=== PATIENT | female | born 1955 | race Caucasian/White ===

== ENCOUNTER 2016-11-09 15:14 | Emergency (ER) ==
--- NOTE | 2016-11-09 16:28 | PROVIDER DOCUMENTATION ---
HPI-Abdominal Pain/GI Problem <Austin Olsen - Last Filed: 11/09/16 16:40> - General Source: patient - History of Present Illness-ABD Abdominal Pain Onset Location: reports: periumbilical Onset/Duration: reports: 2 days ago Timing: reports: still present Activities at Onset: reports: eating Associated Symptoms: reports: diarrhea. denies: fever/chills <Marlene Calabrese - Last Filed: 11/09/16 16:55> <Stanislaw Leon - Last Filed: 11/09/16 17:43> - General Chief Complaint: Abdominal Pain Stated Complaint: ABD PAIN Time Seen by Provider: 11/09/16 16:00 Allergies/Adverse Reactions: Patient Allergies Allergy/AdvReac Type Severity Reaction Status Date / Time No Known Allergies Allergy Verified 07/07/15 17:39 Home Medications: Esomeprazole [Nexium] 40 mg PO DAILY 07/07/15 - History of Present Illness-ABD Nature of Presenting Problems: Pt presents to ER with complaint of abd pain for the last couple months but much worse the past 2 days. Pt states that she cannot eat anything without having diarrhea. Has had gallbladder removed. (Marlene Calabrese) Review of Systems - Adult - REVIEW OF SYSTEMS - ADULT Constitutional: denies: chills, fever Eyes: reports: no symptoms reported Ears, Nose, Mouth & Throat: reports: no symptoms reported Cardiovascular: reports: no symptoms reported Respiratory: reports: no symptoms reported Gastrointestinal: reports: abdominal pain, diarrhea Genitourinary: reports: no symptoms reported Musculoskeletal: reports: no symptoms reported Integumentary: reports: no symptoms reported Neurological: reports: no symptoms reported Psychiatric: reports: no symptoms reported Endocrine: reports: no symptoms reported Hematologic/Lymphatic: reports: no symptoms reported Allergic/Immunologic: reports: no symptoms reported All Other Systems: Reviewed and Negative <Marlene Calabrese - Last Filed: 11/09/16 16:55> Past History - Adult - PAST MEDICAL HISTORY-ADULT Review of Records: reports: Nursing Assessment Review, Medications Reviewed Gastrointestinal: reports: GERD - PRIOR SURGERIES/PROCEDURES Surgical/Procedure History: reports: cholecystectomy - IMMUNIZATION STATUS Childhood Immunizations: See Nurse Assessment Flu Vaccine: See Nurse Assessment <Marlene Calabrese - Last Filed: 11/09/16 16:55> Physical Exam-General - GASTROINTESTINAL (ABDOMEN) Abdominal Exam: normal bowel sounds, soft, no organomegaly, no pulsatile mass, tenderness (generalized diffuse) <Austin Olsen - Last Filed: 11/09/16 16:40> - CONSTITUTIONAL General Appearance: alert, no apparent distress - EYES Eyes: PERRL/EOMI, pink conjunctivae - HEAD, EARS, NOSE, MOUTH & THROAT HENMT: normocephalic/atraumatic, normal ENT inspection - NECK Neck: non-tender, supple - RESPIRATORY Respiratory: no respiratory distress, no accessory muscle use - CARDIOVASCULAR Cardiovascular: normal peripheral pulses, regular rate, rhythm - MUSCULOSKELETAL Back Exam: no CVA tenderness, no vertebral tenderness Extremity: normal gait, normal inspection - SKIN Integumentary: normal color, warm/dry - NEUROLOGIC Neurologic: grossly normal, no motor/sensory deficits - PSYCHIATRIC Psych/Mental Status: normal mood/affect, normal thought content, normal thought process, oriented x 3 <Marlene Calabrese - Last Filed: 11/09/16 16:55> Progress <Austin Olsen - Last Filed: 11/09/16 16:40> <Marlene Calabrese - Last Filed: 11/09/16 16:55> <Stanislaw Leon - Last Filed: 11/09/16 17:43> - PLAN OF CARE/RESULTS Progress/Plan/Lab Results: Vital Signs - 24 hr 11/09/16 15:25 Temperature 98 F Pulse Rate 75 Respiratory 18 Rate Blood Pressure 172/85 O2 Sat by Pulse 97 Oximetry Orders Category Date Time Status CBC WITH DIFF [HEME] Stat Lab 11/09/16 16:46 Completed COMPREHENSIVE METABOLIC PANEL [CHEM] Stat Lab 11/09/16 16:[address] W/POSS RFLX CULT [URINALYSIS] Stat Lab 11/09/16 16:30 Completed URINE CULTURE [RM] Routine Lab 11/09/16 17:14 Ordered Laboratory Tests 11/09/16 11/09/16 11/09/16 16:00 16:30 16:46 WBC RBC Hgb Hct MCV MCH MCHC RDW Std Deviation Plt Count MPV Immature Gran % (Auto) Neut % (Auto) Lymph % (Auto) [place] % (Auto) Eos % (Auto) Baso % (Auto) Immature Gran # (Auto) Neut # (Auto) Lymph # (Auto) [place] # (Auto) Eos # (Auto) Baso # (Auto) Sodium 139 Potassium 3.9 Chloride 102 Carbon Dioxide 29 Anion Gap 8 BUN 6 L Creatinine 0.7 Estimated GFR/1.73 m2 > 60 BUN/Creatinine Ratio 9 Glucose 101 Calculated Osmolality 275 Calcium 9.6 Total Bilirubin 0.50 AST 14 ALT 12 Alkaline Phosphatase 91 Total Protein 7.4 Albumin 4.4 Globulin 3.0 Albumin/Globulin Ratio 1.0 Urine Source Cancelled CLEAN CATCH Urine Color Cancelled YELLOW Urine Clarity SLIGHTLY CLOUDY A Urine Turbidity Cancelled Urine pH Cancelled 5.0 Ur Specific [place] Cancelled 1.020 Urine Protein Cancelled TRACE A Ur Glucose (Stick) Cancelled Urine Ketones NEGATIVE Ur Ketones (Stick) Cancelled Urine Blood Cancelled TRACE Urine Nitrite Cancelled NEGATIVE Urine Bilirubin Cancelled NEGATIVE Urine Urobilinogen NORMAL Urobilinogen Dipstick Cancelled Urine Leukocytes Cancelled Urine WBC (Auto) Cancelled Urine RBC (Auto) Cancelled U Epithel Cells (Auto) Cancelled Urine Bacteria (Auto) Cancelled Urine Microscopic RBC <10 Urine WBC 2+ A Urine Microscopic WBC 10-20 A Ur Epithelial Cells <10 Urine Crystals NONE SEEN Urine Bacteria 1+ Urine Casts NONE SEEN Urine Yeast NONE SEEN Urine Glucose NEGATIVE 11/09/16 16:46 WBC 7.07 RBC 4.50 Hgb 13.2 Hct 38.9 MCV 86.4 MCH 29.3 MCHC 33.9 RDW Std Deviation 12.4 Plt Count 325 MPV 10.5 H Immature Gran % (Auto) 0.1 Neut % (Auto) 68.7 Lymph % (Auto) 25.3 [place] % (Auto) 5.5 Eos % (Auto) 0.1 Baso % (Auto) 0.3 Immature Gran # (Auto) 0.01 Neut # (Auto) 4.85 Lymph # (Auto) 1.79 [place] # (Auto) 0.39 Eos # (Auto) 0.01 Baso # (Auto) 0.02 Sodium Potassium Chloride Carbon Dioxide Anion Gap BUN Creatinine Estimated GFR/1.73 m2 BUN/Creatinine Ratio Glucose Calculated Osmolality Calcium Total Bilirubin AST ALT Alkaline Phosphatase Total Protein Albumin Globulin Albumin/Globulin Ratio Urine Source Urine Color Urine Clarity Urine Turbidity Urine pH Ur Specific [place] Urine Protein Ur Glucose (Stick) Urine Ketones Ur Ketones (Stick) Urine Blood Urine Nitrite Urine Bilirubin Urine Urobilinogen Urobilinogen Dipstick Urine Leukocytes Urine WBC (Auto) Urine RBC (Auto) U Epithel Cells (Auto) Urine Bacteria (Auto) Urine Microscopic RBC Urine WBC Urine Microscopic WBC Ur Epithelial Cells Urine Crystals Urine Bacteria Urine Casts Urine Yeast Urine Glucose (Stanislaw Leon) Departure <Austin Olsen - Last Filed: 11/09/16 16:40> <Marlene Calabrese - Last Filed: 11/09/16 16:55> - Departure Time of Disposition Order: 17:43 Certified Medical Emergency: Emergent <Stanislaw Leon - Last Filed: 11/09/16 17:43> - Departure DIAGNOSIS: UTI (urinary tract infection) Disposition: HOME 01 Condition: Stable Additional Instructions: ED Follow Up Instructions: You have been treated by a care provider in the Emergency Department. These instructions are being provided to you so you can have an understanding of how to care for yourself upon discharge. Upon discharge from the Emergency Department, you are responsible for making arrangements for follow-up care by a physician of your choice. Take all prescribed medications as directed. Return to the Emergency Department immediately for any new or worsening symptoms. You may call the Physician Referral phone number at [phone] to obtain a list of Physicians who are taking new patients. Prescriptions: Ciprofloxacin HCl [Cipro] 500 mg PO BID #14 tablet Referrals: None,PCP [Primary Care Provider] - Linda Plunkett MD [STAFF PHYSICIAN] - Call for Appoint. 1-2days Instructions: Urinary Tract Infection, [id number] Attestation - Scribe Verification/Attestation Scribe:: Austin Olsen Acting as Scribe for:: Stanislaw Leon Scribrubens documention review:: This chart was documented by a scribe and accurately reflects the service the provider performed and the decisions made by the provider. <Austin Olsen - Last Filed: 11/09/16 16:40> - Scribe Verification/Attestation Scribe:: Marlene Calabrese Acting as Scribe for:: Stanislaw Leon Scribrubens documention review:: This chart was documented by a scribe and accurately reflects the service the provider performed and the decisions made by the provider. <Marlene Calabrese - Last Filed: 11/09/16 16:55> Physician Attestation - Physician Attestation I, the provider, attest to the following statement:: Stanislaw Leon Physician documentation Attestation:: This documentation recorded by the scribe accurately reflects the service I personally performed and the decisions made by me. <Austin Oslen - Last Filed: 11/09/16 16:40>
[2016-11-09 16:52] LABS: MANUAL DIFF NEEDED? NO
[2016-11-09 17:09] LABS: BASO% 0.3 % (0.0-0.8); EOS# 0.01 X1000 (0.0-0.7); EOS% 0.1 % (0.0-10.0); HEMATOCRIT 38.9 % (37.0-47.0); HEMOGLOBIN 13.2 g/dL (12.0-16.0); IMM GRAN# 0.01 X1000 (0.0-0.04); IMM GRAN% 0.1 % (0.0-0.5); LYMPH# 1.79 X1000 (1.2-3.4); LYMPH% 25.3 % (20.5-51.1); MCH 29.3 PG (27-31); MCHC 33.9 g/dL (33-37); MCV 86.4 FL (81-99); MONO# 0.39 X1000 (0.11-0.59); MONO% 5.5 % (1.7-9.3); MPV 10.5 FL (7.4-10.4); NEUT% 68.7 % (42.2-75.2); PLT 325 X1000 (130-400)
[2016-11-09 17:12] LABS: URINE SOURCE CLEAN CATCH
[2016-11-09 17:13] LABS: URINE CAST NONE SEEN /LPF; URINE CRYSTAL NONE SEEN /HPF; URINE EPITHELIAL CELLS <10 /HPF (<10); URINE RBC <10 /HPF (<10)
[2016-11-09 17:14] LABS: BILIRUBIN URINE NEGATIVE (NEGATIVE); BLOOD URINE TRACE (NEGATIVE); CLARITY SLIGHTLY CLOUDY (CLEAR); COLOR YELLOW; GLUCOSE URINE NEGATIVE (NEGATIVE); LEUKOCYTES URINE 2+ (NEGATIVE); NITRITE URINE NEGATIVE (NEGATIVE); PROTEIN URINE TRACE mg/dL (NEGATIVE); URINE CULTURE PL NEEDED? YES; UROBILINOGEN URINE NORMAL
[2016-11-09 17:17] LABS: AGAP 8; ALBUMIN 4.4 g/dL (3.5-5.0); ALKALINE PHOSPHATASE 91 U/L (32-104); BUN 6 mg/dL (8-22); CALCIUM 9.6 mg/dL (8.8-10.2); CHLORIDE 102 mmol/L (98-107); COSMO 275; GOT 14 U/L (10-30); GPT 12 U/L (10-36); POTASSIUM 3.9 mmol/L (3.5-5.1); SODIUM 139 mmol/L (136-145); TCO2 29 mmol/L (25-35); TOTAL PROTEIN 7.4 g/dL (6.3-8.3)
[2016-11-09 18:12] VITALS: BP 132/70
== END 2016-11-09 19:22 | disposition home or self-care (01) ==
LOC: P.ED 15:14
DX: N39.0 Urinary tract infection, site not specified (principal); R10.33 Periumbilical pain; R19.7 Diarrhea, unspecified; R10.817 Generalized abdominal tenderness; K21.9 Gastro-esophageal reflux disease without esophagitis
CPT/HCPCS: 80053; 81001; 85025; 87077; 87088; 87186; 99283